=== PATIENT | female | born 1965 | race Hispanic/Latino ===

== ENCOUNTER → 2023-10-20 15:45 | Outpatient (REF) | payer BC, SELFPAY | LOC: WDC 15:45 | PROVIDERS: ATTENDING PHYSICIAN Student in an Organized Health Care Education/Training Program | DX: Z12.31 Encounter for screening mammogram for malignant neoplasm of breast (principal) | CPT/HCPCS: 77063; 77067 ==

== ENCOUNTER → 2024-09-29 10:15 | Outpatient (REF) | payer BC, SELFPAY | LOC: WDC 10:15 | PROVIDERS: ATTENDING PHYSICIAN Physician Assistant Medical | DX: N63.15 Unspecified lump in the right breast, overlapping quadrants (principal) | CPT/HCPCS: 76642; 77062; 77066 ==

== ENCOUNTER → 2025-03-30 13:13 | Outpatient (REF) | payer BC, SELFPAY | LOC: RCS 13:13 | PROVIDERS: ATTENDING PHYSICIAN Internal Medicine Cardiovascular Disease; FAMILY PHYSICIAN Physician Assistant Medical | DX: R07.2 Precordial pain (principal) | CPT/HCPCS: 93017; 93350 ==

== ENCOUNTER → 2025-04-13 14:05 | Outpatient (REF) | payer BC, SELFPAY | LOC: RCS 14:05 | PROVIDERS: ATTENDING PHYSICIAN Internal Medicine Cardiovascular Disease; FAMILY PHYSICIAN Physician Assistant Medical | DX: R06.02 Shortness of breath (principal) | CPT/HCPCS: 93306 ==